=== PATIENT | female | born 1975 | race Caucasian/White ===

== ENCOUNTER 2023-10-12 09:07 | Outpatient (AMB) | payer OTHER, SELFPAY ==
--- NOTE | 2023-10-12 09:11 | A.OFFVIS_ITS ---
Vital Signs 10/12/23 09:12 Height 5 ft 2 in Weight 134 lb 7.712 oz BMI 24.6 BP 103/58 L Blood Pressure Location Lt brachial Position Sitting Pulse 75 Intake Visit Reasons: Hemorrhoids Intake Note: Barbara presents in the office as a new patient for hemorrhoids. CC: She states that she had a colonoscopy last year and was told that she has hemorrhoids. She states that she has discomfort when she is constipated. No blood in her stools or when she wipes. Allergies azithromycin Allergy (Mild, Verified 10/12/23 09:15) Unknown diphenhydramine [From Benadryl] Allergy (Mild, Verified 10/12/23 09:15) Unknown Medication List - Last Reconciled 10/12/23 by Isidro Diego MD acyclovir 5% appl topical alprazolam (Xanax) 0.25 mg PO BEDTIME PRN ascorbic acid (vitamin C) 1 g PO Q6H calcium carbonate (Calcium Antacid) 200 mg PO BID cetirizine 10 mg PO DAILY PRN cholecalciferol (vitamin D3) 125 mcg PO DAILY clindamycin phosphate 1% 1 appl topical BEDTIME dicyclomine 20 mg PO DAILY drospirenone-ethinyl estradiol 3-0.02 mg (Lo-Zumandimine (28)) 1 tab PO DAILY famotidine 10 mg PO BEDTIME lactobacillus combination no.4 (Probiotic) 3,000 mmu cells PO DAILY mecobalamin (vitamin B12) mcg PO methylphenidate HCl 5 mg PO BID multivitamin 1 tab PO DAILY oxcarbazepine 225 mg PO BID tretinoin 0.025% 1 appl topical BEDTIME HPI HPI Hemorrhoids: Details: 48-year-old female referred for hemorrhoids. She says that she had a colonoscopy last year in [place] where she used to live. She was told she had internal hemorrhoids. She just moved here to the area and wanted this to be checked. She was therefore referred to me by her primary care physician She describes occasional constipation. She is describes seeing blood on wiping once in a while although this is rare. She also says that she really did not know she had hemorrhoids before she had a colonoscopy. She denies any swelling or pain. She admits to having endometriosis in the past and had laparoscopic surgery for this. Says she used to be constipated but this is much improved now. PFSH Medical History (Updated 10/12/23 @ 09:43 by Isidro Diego MD) Internal and external hemorrhoids without complication ADHD Anxiety Endometriosis Review of Systems Const Denies chills and Denies fever(s) Card Denies chest pain, Denies dyspnea and Denies dyspnea on exertion Resp Denies cough, Denies dyspnea and Denies dyspnea on exertion GI Denies hematochezia and Denies change in bowel habits Denies hematuria Musc Denies back pain and Denies limited range of motion Neuro Denies focal weakness and Denies convulsions Psych Denies depression and Denies mood swings Physical Exam Vital Signs: BMI result Body Mass Index 24.6 Const General: comfortable and no acute distress Orientation/consciousness: patient oriented x3 Neck Neck: Yes no lymphadenopathy Resp Auscultation: clear to auscultation bilaterally Cardio Rhythm: regular rhythm GI Other: Rectal exam shows small external hemorrhoids on the left and right side Palpation (GI): Soft to palpation, nontender and no guarding Neuro General: patient oriented x3 Office Procedures Anoscopy She was placed in boni-knife position. The anoscope was gently inserted. A full examination of the anal canal was done. She did have small internal external hemorrhoidal columns on both the left and right side. There were no other lesions. There was no fissure. There was no ulceration. There was no induration on digital exam. There was no blood [id number] Assessment & Plan Assessment & Plan (1) Internal and external hemorrhoids without complication: Code(s): K64.4 - Residual hemorrhoidal skin tags; K64.8 - Other hemorrhoids Category: Medical Plan: She does have small internal external hemorrhoids. She denies significant symptoms with this. I told her that in view of the small size of the hemorrhoids and absence of significant symptoms, I would not recommend proceeding with hemorrhoidectomy I did advise her on the benefits of controlling constipation. I told her about benefits of fiber supplementation . She says she understands. She says she will call my office down the line if she has any questions. Coding Level of Care Code New Pt Level 3 (66380) Diagnoses Internal and external hemorrhoids without complication K64.4; K64.8 CPT Codes Details - CPT: [id number] ([id number])
[2023-10-12 09:12] VITALS: BP 103/58; PULSE 75; BMI 24.6
== END 2023-10-12 09:41 | disposition home or self-care (01) ==
PROVIDERS: PCP Nurse Practitioner Family; Visit Provider Surgery
DX: K64.4 Residual hemorrhoidal skin tags (principal); K64.8 Other hemorrhoids
CPT/HCPCS: 46600; 99203

== ENCOUNTER → 2023-10-12 09:07 | Outpatient (BNVA) | payer OTHER, SELFPAY | PROVIDERS: PCP Nurse Practitioner Family; Visit Provider Surgery | DX: K64.4 Residual hemorrhoidal skin tags (principal); K64.8 Other hemorrhoids | CPT/HCPCS: 46600; 99202 ==